=== PATIENT | female | born 1950 | race Caucasian/White ===

== ENCOUNTER → 2019-02-08 12:37 | Outpatient (CLI) | payer MEDICARE, OTHER, SELFPAY ==
--- NOTE | 2019-02-08 | DI.RAD.S_ITS ---
PROCEDURE: XR FOOT RT MIN 3V INDICATIONS: RIGHT FOOT PAIN TECHNIQUE: 3 views of the foot were acquired. COMPARISON: None. FINDINGS: Bones: No fractures or dislocations. No suspicious bony lesions. Severe first TMT joint degeneration. Prominent plantar calcaneal spur. Pes planus appearance although weightbearing views would be more specific. Mild first and second MTP joint degeneration. A possible marginal erosion seen at the first TMT joint, age indeterminate in the absence of prior studies. Soft tissues: No tibiotalar joint effusion. Achilles tendon appears normal. IMPRESSION: Severe first TMT joint degeneration. Marginal erosion at the first TMT joint although technically age-indeterminate in the absence of prior studies. Additional forefoot joint degeneration as above Prominent plantar calcaneal spur. Dictated by: Jonathan Bruner M.D. on 02/08/2019 at 14:28 Approved by: Jonathan Bruner M.D. on 02/08/2019 at 14:31
== END ==
PROVIDERS: Family Provider Physician Assistant; PCP Physician Assistant; Visit Provider Student in an Organized Health Care Education/Training Program
DX: M79.671 Pain in right foot (principal); M19.071 Primary osteoarthritis, right ankle and foot; M77.31 Calcaneal spur, right foot
CPT/HCPCS: 73630

== ENCOUNTER 2019-09-24 06:38 | Day surgery (SDC) | payer MEDICARE, OTHER, SELFPAY ==
[2019-09-24] VITALS (11 sets, daily range): BP systolic 108–164; BP diastolic 64–80; PULSE 43–85; RESP 12–21; TEMP 35.7–36.3; O2SAT 93–98; BMI 39.5
--- NOTE | 2019-09-24 07:34 | PM.PREOP ---
Pre-operative Note Interval Note History & Physical reviewed/Exam performed by Physician: Yes Changes to H&P: No
[2019-09-24] MEDS: LACTATED RINGERS 1,000 ML 42 ML IV ×2 (07:45→08:35)
[2019-09-24] MEDS: CEFAZOLIN 2 GM/100 ML FROZ.PIGGY IV (08:05)
--- NOTE | 2019-09-24 08:14 | SUR.OPER ---
Lithotomy on padded OR bed, head on pillow, arms secured on padded arm boards at <90 degrees abduction. Legs secured in padded yellow fins stirrups.
[2019-09-24] MEDS: BUPIVACAINE 0.5% W/ EPI (PF) 30 ML VIAL INJ (08:20)
--- NOTE | 2019-09-24 09:05 | PM.OP.1 ---
Operative Date/Time/Diagnoses Date of procedure: 09/24/19 Time of procedure: 09:05 Pre-op diagnosis: Symptomatic rectocele Post-op diagnosis: other (Patient with 1st degree cystocele more pronounced than in office) Procedure & Clinicians Procedure: Anterior and posterior repair with perineoplasty Same procedure as scheduled: No (Cystocele repair) Indications: Patient with symptomatic rectocele requesting repair Surgeon: Kacie Pham Click Yes if Unassisted: Yes Anesthesia Type: General Operative Notes Findings: First-degree cystocele with second-degree rectocele no specific enterocele and gaping introitus Closure Type: primary Specimen(s): none sent Estimated Blood Loss (mL): 20 Blood products transfused: none Procedure in detail: Patient was brought to the operating room where she underwent general anesthesia. She was placed in low Yellofin stirrups and prepped and draped in the usual sterile fashion. 2 g Ancef were in prior to beginning of the case. Pulsatile stockings were in place and functional. Warming was with blankets. The bladder was drained with an in-and out catheter A check system was reviewed with the staff in the room prior to beginning the case. 0.5% Marcaine with epinephrine was used to inject over the cystocele. An incision was made with scalpel. Dissection taken out laterally. 0 Vicryl suture was used to plicate over the cystocele. The vaginal incision was closed with 2 0 Vicryl suture. Next a wedge was taken out of the posterior fourchette with a scalpel after injecting with 0.5% Marcaine with epinephrine. The area over the rectocele was incised with a scalpel. Dissection taken out laterally. Plicating sutures of 0 Vicryl suture were made over the rectocele. A 2nd layer of 2 0 Vicryl suture plication sutures were placed. The vaginal incision was closed with 2 0 Vicryl suture and the perineal body built up with 0 Vicryl and then 2 0 Vicryl plicating sutures. Skin was closed with 2 0 Vicryl suture. A finger was placed in the rectum and there were no sutures through the rectum. Patient went to recovery room in good condition. Counts of instruments and sponges were correct. Complications: none Post-operative Condition: stable Disposition: same day surgery Plan for aftercare: Home when awake and stable and able to urinate
[2019-09-24] MEDS: fentaNYL 100 MCG/2 ML INJ IV ×2 (09:25→09:30)
[2019-09-24] MEDS: HYDROCODONE/ACET 5/325 TABLET 1 TAB PO (09:30)
== END 2019-09-24 11:01 | disposition home or self-care (01) ==
LOC: OR 06:41 → AC 06:41
PROVIDERS: PCP Student in an Organized Health Care Education/Training Program; Referring Provider Specialist; Visit Provider Specialist
PROC: (CPT 57260; principal; 2019-09-24 07:45)
DX: N81.6 Rectocele (principal); N81.10 Cystocele, unspecified
CPT/HCPCS: 57260; J0690; J1100; J2405; J2704; J3010

== ENCOUNTER → 2019-12-24 08:13 | Outpatient (CLI) | payer MEDICARE, OTHER, SELFPAY ==
[2019-12-24 08:31] LABS: Add Manual Diff / Slide Review NO; Basophils Absolute Auto 0 /uL (0-100); Basophils Percent Auto 0.9 % (0-2); Eosinophils Absolute Auto 200 /uL (0-450); Eosinophils Percent Auto 3.3 % (2-4); Hematocrit 44.2 % (36-46); Hemoglobin 15.3 g/dL (12.0-16.0); Lymphocytes Absolute Auto 2100 /uL (1100-4500); Lymphocytes Percent Auto 40.2 % (25-40); Mean Corpuscular HGB Conc 34.6 % (30-36); Mean Corpuscular Volume 89.4 fL (80-100); Monocytes Absolute Auto 500 /uL (0-900); Monocytes Percent Auto 10.4 % (3-14); Neutrophils Absolute Auto 2300 /uL (1500-7000); Neutrophils Percent Auto 45.2 % (50-75); Platelet Count 253 X10^3/uL (150-400); Red Blood Cell Count 4.94 X10^6/uL (4.0-5.2); Red Cell Distribution Width 13.2 % (11.6-14.8); White Blood Cell Count 5.1 X10^3/uL (4.5-11.0)
[2019-12-24 08:45] LABS: Alanine Aminotransferase 37 IU/L (<35); Albumin 4.6 g/dL (3.5-5.0); Albumin Globulin Ratio 1.4 (1.0-2.8); Alkaline Phosphatase 75 U/L (38-126); Aspartate Aminotransferase 30 IU/L (14-36); BUN Creatinine Ratio 21.1 (6-22); Bilirubin Total 0.7 mg/dL (0.2-1.3); Blood Urea Nitrogen 20 mg/dL (7-17); Calcium 10.7 mg/dL (8.4-10.2); Carbon Dioxide 23 mmol/L (22-32); Chloride 102 mmol/L (98-107); Cholesterol 184 mg/dL (140-199); Estimated Glomerular Filt Rate 58.7 mL/min (>60); Globulin 3.3 g/dL (1.7-4.1); Glucose 122 mg/dL (80-110); HDL Cholesterol 55 mg/dL (40-60); HEMOLYSIS < 15 (0-50); LDL Cholesterol Calculated 108 mg/dL (<100); Potassium 4.6 mmol/L (3.4-5.1); Sodium 135 mmol/L (137-145); Total Protein 7.9 g/dL (6.3-8.2); Triglycerides 104 mg/dL (35-150)
[2019-12-24 09:34] LABS: Thyroid Stimulating Hormone 0.63 uIU/mL (0.47-4.68)
== END ==
PROVIDERS: PCP Student in an Organized Health Care Education/Training Program; Referring Provider Student in an Organized Health Care Education/Training Program; Visit Provider Student in an Organized Health Care Education/Training Program
DX: I10 Essential (primary) hypertension (principal); E03.9 Hypothyroidism, unspecified
CPT/HCPCS: 36415; 80053; 80061; 84443; 85025

== ENCOUNTER → 2020-07-01 09:50 | Outpatient (CLI) | payer MEDICARE, OTHER, SELFPAY ==
[2020-07-01 14:50] LABS: Vitamin D 25 Hydroxy (D3) 66.1 ng/mL (30.0-100.0)
[2020-07-02 13:40] LABS: Calcium 10.2 mg/dL (8.7-10.3); Parathyroid Hormone, Intact 67 pg/mL (15-65)
== END ==
PROVIDERS: PCP Student in an Organized Health Care Education/Training Program; Referring Provider Student in an Organized Health Care Education/Training Program; Visit Provider Student in an Organized Health Care Education/Training Program
DX: E83.52 Hypercalcemia (principal)
CPT/HCPCS: 36415; 82306; 82310; 83970

== ENCOUNTER → 2020-11-17 18:57 | Outpatient (ROUT) | payer MEDICARE, OTHER, SELFPAY ==
[2020-11-17 20:00] LABS: BUN Creatinine Ratio 21.1 (6-22); Blood Urea Nitrogen 20 mg/dL (7-17); Calcium 10.5 mg/dL (8.4-10.2); Carbon Dioxide 24 mmol/L (22-32); Chloride 105 mmol/L (98-107); Estimated Glomerular Filt Rate 58.5 mL/min (>60); Glucose 117 mg/dL (80-110); HEMOLYSIS < 15 (0-50); Potassium 4.3 mmol/L (3.4-5.1); Sodium 137 mmol/L (137-145)
== END ==
PROVIDERS: PCP Student in an Organized Health Care Education/Training Program; Visit Provider Student in an Organized Health Care Education/Training Program
DX: E83.52 Hypercalcemia (principal); I10 Essential (primary) hypertension
CPT/HCPCS: 80048; 82306

== ENCOUNTER → 2021-07-22 11:04 | Outpatient (CLI) | payer MEDICARE, OTHER, SELFPAY ==
--- NOTE | 2021-07-22 | DI.US.S_ITS ---
PROCEDURE: US PERIPH VENOUS LOW EXTREM RT INDICATIONS: SWELLING AND PAIN TECHNIQUE: Real-time imaging, as well as color and pulse Doppler interrogation, were performed of the lower extremity deep veins from the inguinal ligament to the popliteal fossa. COMPARISON: None. FINDINGS: The common femoral, femoral and popliteal veins are normally compressible, and free of intraluminal thrombus. Color and pulse Doppler demonstrate normal phasic intraluminal flow. There is normal augmentation response to distal compression maneuver. There is mild subcutaneous soft tissue edema of the mid calf to ankle. There is a mildly complicated, nonvascular fluid collection noted in the medial margin of the popliteal fossa extending to the mid/posterior calf measuring 17.3 x 3.7 x 1.7 cm in size. IMPRESSION: Negative for deep venous thrombosis of the right lower extremity. Mildly complicated fluid collection involving the medial margin of the popliteal fossa extending to the mid/posterior calf measuring 17.3 x 3.7 x 1.7 cm. 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 Dictated by: Neel Dominguez M.D. on 07/22/2021 at 12:22 Approved by: Neel Dominguez M.D. on 07/22/2021 at 12:24
== END ==
PROVIDERS: PCP Student in an Organized Health Care Education/Training Program; Referring Provider Student in an Organized Health Care Education/Training Program; Visit Provider Student in an Organized Health Care Education/Training Program
DX: M79.604 Pain in right leg (principal); M79.89 Other specified soft tissue disorders
CPT/HCPCS: 93971

== ENCOUNTER → 2021-09-28 09:50 | Outpatient (CLI) | payer MEDICARE, OTHER, SELFPAY ==
--- NOTE | 2021-09-28 09:54 | DI.RAD.S_ITS ---
PROCEDURE: XR KNEE LT 3V INDICATIONS: BI KNEE PAIN/RT HIP PAIN TECHNIQUE: 3 views of the knee were acquired. COMPARISON: None. FINDINGS: Bones: No fractures or dislocations. No suspicious bony lesions. Mild periarticular osteophyte formation. Soft tissues: No joint effusion. No suspicious soft tissue calcifications. IMPRESSION: Osteoarthritis. No acute fracture. No osseous lesion. If symptoms and/or clinical suspicion for pathology persist, further assessment with repeat, or advanced imaging (e.g., CT, MRI, or bone scan) may be helpful for further assessment. Dictated by: Xi Renee M.D. on 09/28/2021 at 11:01 Approved by: Xi Renee M.D. on 09/28/2021 at 11:01
--- NOTE | 2021-09-28 09:54 | DI.RAD.S_ITS ---
PROCEDURE: XR HIP W PEL IF DONE RT 2V INDICATIONS: BI KNEE PAIN/RT HIP PAIN TECHNIQUE: AP pelvis with lateral view(s) of the right hip(s). COMPARISON: None. FINDINGS: Bones: No fractures or dislocations. Mild right and moderate left joint space loss. Prominence of the left femoral head/neck junction, which is nonspecific but can be seen in the setting of femoral acetabular impingement. Pelvic ring appears intact. No suspicious bony lesions. Soft tissues: The visualized bowel gas pattern is normal. Vascular calcifications. IMPRESSION: No acute osseous abnormality. Dictated by: Serafin Haley M.D. on 09/28/2021 at 11:37 Approved by: Serafin Haley M.D. on 09/28/2021 at 11:39
--- NOTE | 2021-09-28 09:54 | DI.RAD.S_ITS ---
PROCEDURE: XR KNEE RT 3V INDICATIONS: BI KNEE PAIN/RT HIP PAIN TECHNIQUE: 3 views of the knee were acquired. COMPARISON: None. FINDINGS: Moderate joint space narrowing in the medial femorotibial and patellofemoral compartments with marginal osteophytosis. No subchondral sclerosis or cystic change. No knee joint effusion. No acute or suspicious osseous lesion. IMPRESSION: Moderate osteoarthritis in the knee. Dictated by: Levi Santamaria M.D. on 09/28/2021 at 12:41 Approved by: Levi Santamaria M.D. on 09/28/2021 at 12:42
== END ==
PROVIDERS: PCP Student in an Organized Health Care Education/Training Program; Referring Provider Student in an Organized Health Care Education/Training Program; Visit Provider Student in an Organized Health Care Education/Training Program
DX: M17.0 Bilateral primary osteoarthritis of knee (principal); M25.561 Pain in right knee; M25.562 Pain in left knee; M25.551 Pain in right hip; G89.29 Other chronic pain
CPT/HCPCS: 73502; 73562

== ENCOUNTER → 2022-06-02 10:05 | Outpatient (CLI) | payer MEDICARE, OTHER, SELFPAY ==
--- NOTE | 2022-06-02 | DI.RAD.S_ITS ---
PROCEDURE: XR HIP W PEL IF DONE LT 2V INDICATIONS: Low back pain, LEFT KNEE/LEFT HIP PAIN TECHNIQUE: Two views of the hip were acquired. COMPARISON: [facility], , XR HIP W PEL IF DONE RT 2V, 09/28/2021, 10:02. FINDINGS: Moderate to severe bilateral hip osteoarthritis, more pronounced on the left, characterized by joint space narrowing with marginal osteophytosis as well as subchondral sclerosis and subchondral cystic change. Mild inferior sacroiliac joint degenerative changes. IMPRESSION: Moderate to severe bilateral hip osteoarthritis, left greater than right. Dictated by: Levi Santamaria M.D. on 06/02/2022 at 11:50 Approved by: Levi Santamaria M.D. on 06/02/2022 at 12:00
--- NOTE | 2022-06-02 | DI.RAD.S_ITS ---
PROCEDURE: XR LUMBAR SPINE 2-3V INDICATIONS: Low back pain, LEFT KNEE/LEFT HIP PAIN TECHNIQUE: 3 views of the lumbar spine were acquired. COMPARISON: None. FINDINGS: Moderate lower lumbar spine degenerative changes characterized by disc height loss with facet hypertrophy. No suspicious lytic or blastic osseous lesion. Mildly exaggerated lumbar lordosis. No listhesis. Vertebral body heights maintained. IMPRESSION: No acute finding. Moderate lower lumbar spine degenerative changes. Dictated by: Levi Santamaria M.D. on 06/02/2022 at 12:00 Approved by: Leiv Santamaria M.D. on 06/02/2022 at 12:01
--- NOTE | 2022-06-02 | DI.RAD.S_ITS ---
PROCEDURE: XR KNEE LT 3V INDICATIONS: Low back pain, LEFT KNEE/LEFT HIP PAIN TECHNIQUE: 3 views of the knee were acquired. COMPARISON: [facility], CR, XR KNEE LT 3V, 09/28/2021, 10:02. FINDINGS: Bones: No fractures or dislocations. No suspicious bony lesions. Mild tricompartmental knee joint degeneration. Soft tissues: Trace joint effusion. No suspicious soft tissue calcifications. IMPRESSION: Mild degenerative joint disease. If clinical symptoms persist or clinical suspicion for internal derangement is high, MRI is suggested for further evaluation. Dictated by: Isamar Henderson M.D. on 06/02/2022 at 12:44 Approved by: Isamar Henderson M.D. on 06/02/2022 at 12:45
== END ==
PROVIDERS: PCP Student in an Organized Health Care Education/Training Program; Referring Provider Student in an Organized Health Care Education/Training Program; Visit Provider Student in an Organized Health Care Education/Training Program
DX: M16.0 Bilateral primary osteoarthritis of hip (principal); M17.12 Unilateral primary osteoarthritis, left knee; M47.816 Spondylosis without myelopathy or radiculopathy, lumbar region; M54.50 Low back pain, unspecified; M25.552 Pain in left hip; M25.562 Pain in left knee
CPT/HCPCS: 72100; 73502; 73562

== ENCOUNTER → 2022-09-29 10:03 | Outpatient (CLI) | payer MEDICARE, OTHER, SELFPAY ==
[2022-09-29 11:47] LABS: Phosphorous 3.4 mg/dL (2.8-4.1)
[2022-09-29 12:03] LABS: Vitamin D 25 Hydroxy (D3) 67.1 ng/mL (30.0-100.0)
[2022-10-01 14:08] LABS: Calcium 10.3 mg/dL (8.7-10.3); Parathyroid Hormone, Intact 71 pg/mL (15-65)
== END ==
PROVIDERS: PCP Student in an Organized Health Care Education/Training Program; Referring Provider Internal Medicine Endocrinology, Diabetes & Metabolism; Visit Provider Internal Medicine Endocrinology, Diabetes & Metabolism
DX: E21.0 Primary hyperparathyroidism (principal)
CPT/HCPCS: 36415; 82306; 82310; 83970; 84100

== ENCOUNTER → 2022-10-04 10:08 | Outpatient (CLI) | payer MEDICARE, OTHER, SELFPAY ==
--- NOTE | 2022-10-04 09:31 | DI.DEXA.S_ITS ---
Indication: postmenopausal; screening for osteoporosis; Referring Provider: MONTSE CANTU Study: Bone densitometry was performed. Exam Date: October 04, 2022 Accession number: [id number] Bone Density: Region BMD T-score Z-score Classification AP Spine(L1-L4) 1.098 0.5 2.6 Normal Femoral Neck (Left) 0.703 -1.3 0.5 Osteopenia Total Hip (Left) 0.876 -0.5 1.0 Normal Femoral Neck (Right) 0.688 -1.5 0.4 Osteopenia Total Hip (Right) 0.871 -0.6 0.9 Normal Total Hip Mean 0.873 -0.6 1.0 Normal World Health Organization criteria for BMD impression classify patients as: Normal (T-score at or above -1.0), Osteopenia (T-score between -1.0 and -2.5), or Osteoporosis (T-score at or below -2.5). 10-year Fracture Risk(1): Major Osteoporotic Fracture 9.3% Hip Fracture 1.2% Reported Risk Factors: [place] (), Neck BMD=0.688, BMI=32.3 (1) FRAX(R) Version 3.08. Fracture probability calculated for an untreated patient. Fracture probability may be lower if the patient has received treatment. Impression: The patient has low bone mass, based on the Right Femoral Neck T-score. The patient has an estimated ten-year risk of hip fracture of 1.2% and an estimated ten-year risk of major fracture of 9.3%, based on the WHO FRAX algorithm. Discussion: BONE DENSITY IS LOW AT ONE OR MORE SKELETAL SITES. This patient's lowest T-score is low at one or more skeletal sites. It meets the World Health Organization's (WHO) criteria for ?low bone mass? (T-score between -1.0 and -2.5). The patient's 10-year risk of fracture as calculated by FRAX is less than the threshold where pharmacological therapy is recommended by the National Osteoporosis Foundation (NOF). However, all treatment decisions require clinical judgment and consideration of individual patient factors, including patient preferences, comorbidities, previous drug use, risk factors not captured in the FRAX model (e.g., frailty, falls, vitamin D deficiency, increased bone turnover, interval significant decline in bone density) and possible under or overestimation of fracture risk by FRAX. The patient should follow a healthful lifestyle (good nutrition with adequate calcium and vitamin D, and appropriate weight-bearing exercise). Follow-Up: Consider repeating this study in 2 to 3 years to reassess this patient's status, or sooner if there is some new clinical indication. Reported by: Thomas BETANCOURT M.D. on 10/04/2022 9:43:00 AM.
== END ==
PROVIDERS: PCP Student in an Organized Health Care Education/Training Program; Referring Provider Internal Medicine Endocrinology, Diabetes & Metabolism; Visit Provider Internal Medicine Endocrinology, Diabetes & Metabolism
DX: E21.0 Primary hyperparathyroidism (principal); M85.851 Other specified disorders of bone density and structure, right thigh; Z13.820 Encounter for screening for osteoporosis; Z78.0 Asymptomatic menopausal state
CPT/HCPCS: 77080

== ENCOUNTER 2023-08-30 08:02 | Day surgery (SDC) | payer MEDICARE, OTHER, SELFPAY ==
--- NOTE | 2023-08-30 | PATH_ITS ---
[facility] Accession Number: [id number] No. of containers..02 Tissue . 01 Material submitted: . PART A: colon - SIGMOID COLON POLYP PART B: colon - DESCENDING COLON POLYP X2 . 01 Diagnosis: A. Sigmoid Colon Polyp: Colonic mucosa with focal mucosal hyperplasia. Negative for dysplasia or malignancy. . B. Descending Colon Polyps: Hyperplastic polyps (two polyps removed). MRV 09/01/2023 1922 Local . 01 Electronically signed: . Lukas De La Fuente MD, PhD, Pathologist NPI- [id number] . 01 Gross description: . Part A: SIGMOID COLON POLYP: Received in formalin is 2 fragment(s) of polo, soft tissue measuring 0.3 x 0.2 x 0.1 cm to 0.2 x 0.2 x 0.1 cm submitted entirely in 1 cassette(s) Part B: DESCENDING COLON POLYP X2: Received in formalin is 3 fragment(s) of polo, soft tissue measuring 0.3 x 0.2 x 0.1 cm to 0.2 x 0.1 x 0.1 cm submitted entirely in 1 cassette(s) /AAY 08/31/2023 0434 Local . 01 Pathologist provided ICD-10: K63.5 . 01 CPT . 119116, [id number] Specimen Comment: A courtesy copy of this report has been sent to [phone] Performed at: 01 [facility] [address] [place] [address] [id number] MD Lam Santa MD Phone: [phone]
[2023-08-30 08:26] VITALS: BP 117/84; PULSE 76; RESP 17; TEMP 36.2; O2SAT 97
[2023-08-30] MEDS: LACTATED RINGERS 1,000 ML 42 ML IV (08:45)
--- NOTE | 2023-08-30 08:54 | PM.HP.1 ---
History of Present Illness History of Present Illness Date Patient Seen: 08/30/23 Time Patient Seen: 08:54 Chief complaint: SDC Narrative: 73-year-old woman personal history of colonic polyps here for screening colonoscopy. Last colonoscopy 2017. No family history of intestinal malignancy. No abdominal concerns today. [facility] Medical History Former smoker Hypercalcemia GERD (gastroesophageal reflux disease) Polycystic kidney disease Impaired glucose tolerance Allergic rhinitis Hypothyroid HTN (hypertension) HLD (hyperlipidemia) Melanoma Chicken pox Surgical History Hx of tonsillectomy History of surgery (~2009) Social History household members: spouse Smoking Status: Former smoker alcohol intake: current Meds Home Medications and Allergies Home Medications Medication Instructions Recorded Confirmed Type atorvastatin 10 mg tablet (Lipitor) 10 mg PO HS ##0 08/19/17 08/30/23 History cholecalciferol (vitamin D3) 125 4,000 iu PO ##0 08/19/17 09/23/20 History mcg (5,000 unit) capsule levothyroxine 100 mcg tablet 100 mcg PO QAM ##0 08/19/17 08/30/23 History lisinopril 20 mg tablet 20 mg PO QDAY ##0 08/19/17 08/30/23 History Allergies Allergy/AdvReac Type Severity Reaction Status Date / Time kiwi [KIWI] Allergy Intermediate MOUTH/THROAT Verified 08/30/23 08:18 ITCHING amoxicillin [From AUGMENTIN] AdvReac Mild DIARRHEA Verified 08/30/23 08:18 clavulanic acid AdvReac Mild DIARRHEA Verified 08/30/23 08:18 [From AUGMENTIN] Exam Vital Signs (past 8 hours): - 08/30/23 08:26 Temperature 97.1 F L Pulse Rate 76 Respiratory Rate 17 Blood Pressure 117/84 Pulse Oximetry 97 Oxygen Delivery Method Room Air Oxygen Delivery Method Room Air Narrative Exam Narrative: General adult woman alert oriented no acute distress Chest nonlabored respiration Extremities warm well perfused Assessment & Plan Assessment & Plan narrative: The patient requires colorectal screening and colonoscopy is recommended. Technical details were discussed. Risks, benefits, alternatives explained. Risks including but not limited to myocardial infarction, aspiration, bleeding, pain, missed lesion, incomplete examination, need for further radiographic studies, colonic perforation, and need for major abdominal surgery were discussed. All questions were answered to their satisfaction, and they are in agreement with this plan.
[2023-08-30 09:25] VITALS: BP 95/55; PULSE 62; RESP 16; TEMP 36.6; O2SAT 95
[2023-08-30 09:31] VITALS: BP 102/61; PULSE 73; RESP 18; O2SAT 97
--- NOTE | 2023-08-30 09:31 | P.OP.COLON_ITS ---
Operative Date/Time/Diagnoses Date of procedure: 08/30/23 Time of procedure: 09:31 Pre-op diagnosis: Screening colonoscopy Post-op diagnosis: other (Colonic polyps x3) Procedure & Clinicians Study performed: Colonoscopy Same procedure as scheduled: Yes Indications: Colorectal screening Surgeon: Malachi Clay Procedure Notes Procedure in detail: The history and physical was performed/updated and the patient is ASA class is3. The procedure was discussed in detail with the patient. Potential risks complications including infection, bleeding, missed diagnosis, perforation, need for surgery, and were explained. Their questions were answered and informed consent was obtained. Patient was brought to the procedure room and placed standard monitoring equipment. The patient's vital signs were monitored continuously throughout the entire procedure. Prior to starting time-out was performed. The patient was placed in the left lateral recumbent position. Procedural sedation was administered by anesthesia. Examination began with a thorough inspection of the perianal area there was no evidence of fissures, fistulae, external hemorrhoids or cutaneous malignancy. The colonoscopy scope was then placed into the anal canal and was advanced to the cecum, which was identified by the ileocecal valve, the appendiceal orifice and the confluence of the taenia. The scope was then slowly withdrawn examining colon thoroughly in all directions, irrigating it of any residual stool. The scope was retroflexed within the rectum The patient tolerated the procedure well. They will be discharged once criteria are met. The prep was of good/excellent quality. The withdrawl time was 7 minutes. FINDINGS * Descending colon 3 mm polyps x2 removed with biopsy forceps * Sigmoid hyperplastic 1 mm polyp removed with biopsy forceps Specimen(s): other (Sigmoid and descending colonic polyps x2) Impression: Colonic polyps x3 Post-procedure Plan for aftercare: Follow-up is dependent on pathology findings Disposition: same day surgery
[2023-08-30 09:35] VITALS: BP 106/66; PULSE 62; RESP 18; TEMP 36.3; O2SAT 96
[2023-08-30 09:41] VITALS: BP 113/67; PULSE 58; RESP 18; O2SAT 97
== END 2023-08-30 10:30 | disposition home or self-care (01) ==
PROVIDERS: PCP Student in an Organized Health Care Education/Training Program; Referring Provider Surgery; Visit Provider Surgery
PROC: 0DJD8ZZ Inspection of Lower Intestinal Tract, Via Natural or Artificial Opening Endoscopic (ICD-10-PCS; CPT 45378; principal; 2023-08-30 08:45)
DX: Z12.11 Encounter for screening for malignant neoplasm of colon (principal); Z86.010 Personal history of colon polyps; K21.9 Gastro-esophageal reflux disease without esophagitis; D12.5 Benign neoplasm of sigmoid colon; D12.4 Benign neoplasm of descending colon
CPT/HCPCS: 45380; J2250; J2704

== ENCOUNTER → 2023-11-10 10:54 | Outpatient (CLI) | payer MEDICARE, OTHER, SELFPAY ==
--- NOTE | 2023-11-10 10:55 | DI.RAD.S_ITS ---
PROCEDURE: XR DEXA AXIAL SKELETON INDICATIONS: Asymptomatic menopausal state COMPARISON: [facility], CR, XR DEXA AXIAL SKELETON, 10/04/2022, 9:31. FINDINGS: Lumbar Spine: Bone mineral density 1.115 g/cm2, T score 0.6. No significant interval change. Left Hip: Bone mineral density 0.903 g/cm2, T score -0.3. There is significant interval increase in bone mineral density. Left Femoral Neck: Bone mineral density 0.705 g/cm2, T score -1.3. No significant interval change. Right Hip: Bone mineral density 0.838 g/cm2, T score -0.9. There is significant interval decrease in bone mineral density. Right Femoral Neck: Bone mineral density 0.697 g/cm2, T score -1.4. No significant interval change. Fracture Risk Calculation (when applicable): 10-year fracture risk of a major osteoporotic fracture 9.3 % and of a hip fracture 1.3 %. (T score greater or equal to -1.0 to: NORMAL) (T score from -1.1 to -2.4: OSTEOPENIA) (T score less than or equal to -2.5: OSTEOPOROSIS) IMPRESSION: Osteopenia. There is significant interval decrease in bone mineral density at the right total hip. There is significant interval increase in bone mineral density at the left total hip. Dictated by: Joel Madison M.D. on 11/11/2023 at 8:22 Approved by: Joel Madison M.D. on 11/11/2023 at 8:27
== END ==
LOC: RAD 10:55
PROVIDERS: PCP Student in an Organized Health Care Education/Training Program; Referring Provider Student in an Organized Health Care Education/Training Program; Visit Provider Student in an Organized Health Care Education/Training Program
DX: Z78.0 Asymptomatic menopausal state (principal); M85.89 Other specified disorders of bone density and structure, multiple sites
CPT/HCPCS: 77080

== ENCOUNTER 2025-07-03 17:14 | Emergency (ER) | payer MEDICARE, OTHER, SELFPAY ==
[2025-07-03 17:23] VITALS: BP 209/88; PULSE 45; RESP 17; TEMP 36.4; O2SAT 97; BMI 32.3
--- NOTE | 2025-07-03 17:29 | DI.RAD.S_ITS ---
PROCEDURE: XR CHEST 1V INDICATIONS: Chest Pain TECHNIQUE: One view of the chest was acquired. COMPARISON: None. FINDINGS: Surgical changes and devices: None. Lungs and pleura: Lungs are clear. No pleural effusions or pneumothorax. Elevated right diaphragm is present. Mediastinum: The aorta and pulmonary arteries demonstrate normal size. Calcifications are noted in the thoracic arch. Bones and chest wall: No suspicious bony abnormalities. Soft tissues appear unremarkable. Multilevel degenerative disc disease noted. Dextroscoliosis of the thoracic spine noted. IMPRESSION: No acute cardiopulmonary abnormality is seen. Dictated by: Jeanette Aleman M.D. on 07/03/2025 at 18:31 Approved by: Jeanette Aleman M.D. on 07/03/2025 at 18:32
--- NOTE | 2025-07-03 17:34 | EKG_ITS ---
[facility] [address] [place] [address] Test Date: 2025-07-03 Pat Name: Johanna Bowers Department: [facility] Room: Gender: Female [employer]: : 1950 Requested By: Order Number: [id number] Reading MD: Percy Payne MD Measurements Intervals [place] Rate: 66 P: 39 MI: 170 QRS: -6 QRSD: 98 T: 39 QT: 386 QTc: 404 Interpretive Statements Sinus rhythm with frequent premature ventricular complexes Low voltage QRS Cannot rule out Anterior infarct , age undetermined Electronically Signed On 07-04-2025 9:39:05 PST by Percy Payne MD
[2025-07-03 17:55] LABS: Add Manual Diff / Slide Review NO; Hematocrit 43.4 % (36-46); Hemoglobin 14.9 g/dL (12.0-16.0); Lymphocytes Absolute Auto 2400 /uL (1100-4500); Mean Corpuscular HGB Conc 34.3 % (30-36); Mean Corpuscular Hemoglobin 29.6 PG (26-34); Mean Corpuscular Volume 86.3 fL (80-100); Platelet Count 279 X10^3/uL (150-400)
[2025-07-03 18:12] LABS: INR 1.0 (0.9-1.3); Prothrombin Time 11.5 SECONDS (9.4-12.5)
[2025-07-03 18:15] LABS: PTT Partial Thromboplastin Tim 27 SECONDS (25.1-36.5)
[2025-07-03 18:16] LABS: Alanine Aminotransferase 29 IU/L (<35); Albumin 4.6 g/dL (3.5-5.0); Albumin Globulin Ratio 1.5 (1.0-2.8); Alkaline Phosphatase 74 U/L (38-126); Blood Urea Nitrogen 22 mg/dL (7-17); Calcium 10.3 mg/dL (8.4-10.2); Carbon Dioxide 22 mmol/L (22-32); Chloride 103 mmol/L (98-107); Creatine Kinase 33 U/L (30-135); Estimated Glomerular Filt Rate 55 mL/min (>60); Globulin 3.1 g/dL (1.7-4.1); Glucose 127 mg/dL (70-99); HEMOLYSIS < 15 (0-50); Lipase 208 U/L (23-300); Magnesium 1.7 mg/dL (1.6-2.3); Potassium 4.3 mmol/L (3.4-5.1); Sodium 135 mmol/L (137-145); Total Protein 7.7 g/dL (6.3-8.2)
[2025-07-03 18:29] LABS: NT-proBNP (BNP-Adult 18+) 406 pg/mL (<125); Troponin I < 0.012 ng/mL (0.01-0.034)
== END 2025-07-03 21:41 | disposition left against medical advice (07) ==
PROVIDERS: Emergency Medicine; Emergency Provider Emergency Medicine; PCP Physician Assistant
DX: R06.02 Shortness of breath (principal); R42 Dizziness and giddiness
CPT/HCPCS: 71045; 80053; 82550; 83690; 83735; 83880; 84484; 85025; 85610; 85730; 93005; 99281

== ENCOUNTER → 2025-07-15 09:10 | Outpatient (CLI) | payer MEDICARE, OTHER, SELFPAY ==
--- NOTE | 2025-07-15 09:12 | DI.ECHO.S_ITS ---
[facility] : : [address] : : [place] : : [id number] : : Phone: [phone] Echocardiogram Report + + :Name: LUZMARIA VITALE Study Date: 07/15/2025 Height: 66 in : :[facility] ReadingLocation: Weight: 250 lb : : Gender: Female BSA: 2.2 m2 : :: 1950 Age: 75 yrs BP: 163/105 mmHg: :Reason For Study: DYPSNEA WITH PHYSICAL EXERTION : :Ordering Physician: MARISSA : :CLAUDIA Performed By: Levi Shin : :Referring: CLAUDIA ANN : + + Interpretation Summary The patient was in atrial fibrillation with heart rates between 58-77 bpm during the exam. The study quality was technically difficult. The ejection fraction is estimated to be 55-60%. The right ventricle is not well visualized. No obvious significant valvular abnormalities. Procedure: A two-dimensional transthoracic echocardiogram with color flow and Doppler was performed. A contrast injection of Definity was performed to improve assessment of LV function. The study quality was technically difficult. There is no prior echocardiogram noted for this patient. The patient was in atrial flutter with heart rates between 58-77 bpm during the exam. Left Ventricle: The left ventricle is normal in size. There is normal left ventricular wall thickness. There is no ventricular septal defect visualized. The ejection fraction is estimated to be 55-60%. There are no focal wall motion abnormalities. Diastolic function could not be accurately assessed due to atrial fibrillation. Right Ventricle: The right ventricle is not well visualized. Atria: The left atrium is not well visualized. Right atrium not well visualized secondary to technical limitations. The interatrial septum is not well visualized. Mitral Valve: The mitral valve is grossly normal. There is no mitral regurgitation noted. Aortic Valve: The aortic valve is trileaflet. The aortic valve is slightly calcified. No aortic regurgitation is present. Tricuspid Valve: The tricuspid valve is not well visualized, but is grossly normal. There is a trace or physiologic amount of tricuspid regurgitation. Pulmonic Valve: The pulmonic valve is not well seen, but is grossly normal. There is no pulmonic valvular regurgitation. Great Vessels: The aortic root is normal size. The ascending aorta is mildly enlarged. The pulmonary artery is not well visualized, but is probably normal size. The inferior vena cava was not visualized. Pericardium/ Pleura There is no pericardial effusion. There is no pleural effusion. MMode/2D Measurements & Calculations LVIDd: 4.9 cm LVOT diam: 2.5 cm LVIDs: 3.4 cm Ao root diam: 3.5 cm FS: 31.2 % asc Aorta Diam: 3.7 cm EPSS: 0.79 cm Ao Arch Diam (Prox Trans): 1.7 cm IVSd: 0.98 cm LVPWd: 0.81 cm LV dickson. diameter/BSA (cm/m^2): 2.2 LV sys. diameter/BSA (cm/m^2): 1.5 Doppler Measurements & Calculations Ao V2 max: 129.1 cm/sec LVOT Max Raul: 79.8 cm/sec Ao V2 mean: 93.8 cm/sec LV V1 max P.5 mmHg Ao max P.7 mmHg LV V1 VTI: 21.8 cm Ao mean P.8 mmHg ALVIN(I,D): 3.1 cm2 Ao V2 VTI: 33.6 cm ALVIN(V,D): 2.9 cm2 sev ratio: 0.65 ALVIN indexed to BSA (cm^2/m^2): 1.4 MV E max raul: 84.6 cm/sec TR max raul: 182.0 cm/sec MV A max raul: 64.4 cm/sec TR max P.2 mmHg MV E/A: 1.3 PA V2 max: 122.8 cm/sec Med Peak E' Raul: 3.8 cm/sec PA V2 mean: 81.8 cm/sec E/E' med: 22.3 PA mean P.0 mmHg Lat Peak E' Raul: 4.9 cm/sec PA pr(Accel): 32.8 mmHg E/E' lat: 17.4 E/e' average: 19.8 MV dec time: 0.16 sec SV(LVOT): 102.9 ml Reading Physician:10:59 AM
== END ==
LOC: ECHO 09:11
PROVIDERS: PCP Physician Assistant; Referring Provider Internal Medicine; Visit Provider Internal Medicine
DX: I77.89 Other specified disorders of arteries and arterioles (principal); R06.09 Other forms of dyspnea
CPT/HCPCS: C8929; Q9957